=== PATIENT | female | born 1985 | race Caucasian/White ===

== ENCOUNTER 2022-04-01 18:11 | Emergency (ER) | payer BC ==
[~2022-04-01] VITALS: Ht 167.6 cm; Wt 77.3 kg
[2022-04-01 18:19] VITALS: BP 133/76
[2022-04-01] MEDS ORDERED: AMOX-117 PO (18:25)
[2022-04-01] MEDS ORDERED: TETanus/Pertussis (Acell)/Diphther VAC/PF (Tdap-Adult) 0.5ml syringe IMVAC ONE (18:25)
[2022-04-01] MEDS ORDERED: bacitracin 15gm ointment TP ONE (18:25)
[2022-04-01] MEDS ORDERED: LIDOcaine 1% w/EPI 1:100,000 30ml vial (MDV) IJ ONE (18:25)
[2022-04-01] MEDS ORDERED: amox tr/potassium clavulanate 875/125mg TAB PO ONE (18:25)
== END 2022-04-01 19:32 | disposition home or self-care (01) ==
LOC: ER 18:13
DX: S51.851A Open bite of right forearm, initial encounter (principal); Z91.030 Bee allergy status; W54.0XXA Bitten by dog, initial encounter; Y93.89 Activity, other specified; Y92.89 Other specified places as the place of occurrence of the external cause; Y99.8 Other external cause status
CPT/HCPCS: 12002; 73090; 90471; 90715; 99283; J7030; A6258; A6449